=== PATIENT | female | born 1940 | race Caucasian/White ===

== ENCOUNTER 2018-07-15 09:01 | Inpatient (IN) | payer BC ==
[~2018-07-15] VITALS: Ht 157.5 cm; Wt 97.0 kg
[2018-07-15 09:35] LABS: BASOPHILS % (AUTO) 0.7 % (0-1); EOSINOPHILS # (AUTO) 0.1 X10'3 (0-0.9); EOSINOPHILS % (AUTO) 1.4 % (0-6); HEMATOCRIT 43.5 % (35.0-45.0); HEMOGLOBIN 14.1 g/dl (12.0-16.0); LYMPHOCYTES # (AUTO) 1.4 X10'3 (1.1-4.8); LYMPHOCYTES % (AUTO) 23.4 % (21-51); MEAN CORPUSCULAR HEMOGLOBIN 27.5 PG (27.0-31.0); MEAN CORPUSCULAR HGB CONC 32.6 g/dL (33.0-36.5); MEAN CORPUSCULAR VOLUME 84.5 FL (78-98); MEAN PLATELET VOLUME 8.4 FL (7.4-10.4); MONOCYTES # (AUTO) 0.5 X10'3 (0-0.9); MONOCYTES % (AUTO) 7.9 % (2-12); NEUTROPHILS # (AUTO) 4.1 X10'3 (1.8-7.7); NEUTROPHILS % (AUTO) 66.6 % (42-75); PLATELET COUNT 231 X10'3 (140-440); RED BLOOD COUNT 5.15 X10'6 (4.20-5.60); RED CELL DISTRIBUTION WIDTH 16.7 % (11.5-14.5); WHITE BLOOD COUNT 6.1 X10'3 (4.5-11.0)
[2018-07-15 09:51] LABS: ALANINE AMINOTRANSFERASE 75 U/L (12-78); ALBUMIN 3.4 G/DL (3.4-5.0); ALKALINE PHOSPHATASE 58 IU/L (46-116); ANION GAP 10 (8-16); ASPARTATE AMINO TRANSFERASE 57 U/L (10-37); BILIRUBIN,TOTAL 0.9 MG/DL (0.1-1.0); BLOOD UREA NITROGEN 25 MG/DL (7-18); BUN/CREATININE RATIO 21.7 (6.6-38.0); CALCIUM 9.8 MG/DL (8.5-10.1); CHLORIDE 108 MMOL/L (99-107); CREATININE 1.15 MG/DL (0.40-0.90); GLUCOSE 103 MG/DL (70-104); POTASSIUM 3.9 MMOL/L (3.5-5.1); SODIUM 141 MMOL/L (135-145); TOTAL CARBON DIOXIDE 23.4 MMOL/L (24-32); TOTAL PROTEIN 6.8 G/DL (6.4-8.2); eGFR 45 ML/MIN
[2018-07-15 09:53] LABS: PARTIAL THROMBOPLASTIN TIME 36 SECONDS (22-32)
[2018-07-15] MEDS ORDERED: normal saline 1000ML IV soln IVB ONE (09:55)
[2018-07-15] MEDS ORDERED: mag hydrox/Alum hydrox/simeth 30ml oral suspension PO PRN (11:15)
[2018-07-15] MEDS ORDERED: magnesium hydroxide 30ml (MOM) UD suspension PO PRN (11:15)
[2018-07-15] MEDS ORDERED: ondansetron/PF 4mg/2ml inj IV PRN (11:15)
[2018-07-15] MEDS ORDERED: acetaminophen 325mg tablet PO PRN (11:15)
[2018-07-15] MEDS ORDERED: morphine 2 MG/ML inj. syringe IV PRN ×2 (11:15)
[2018-07-15] MEDS ORDERED: METO50TA7 PO (11:24)
[2018-07-15] MEDS ORDERED: WARF-55 PO (11:24)
[2018-07-15] MEDS ORDERED: FURO-150 PO (11:24)
[2018-07-15] MEDS ORDERED: GLUC100017 PO (11:24)
[2018-07-15] MEDS ORDERED: COU5T PO (11:24)
[2018-07-15] MEDS ORDERED: CYAN250014 PO (11:24)
[2018-07-15] MEDS ORDERED: BENA20TA82 PO (11:24)
[2018-07-15] MEDS ORDERED: CALC500T63 PO (11:24)
[2018-07-15] MEDS: furosemide 40mg/4ml inj IV SCH ×2 (11:30→21:45)
--- NOTE | 2018-07-15 14:50 | NUR ---
Patient in room PCU 3026. I have received report from Abbe ROBERSON and had the opportunity to ask questions and assume patient care. Tele monitor is on patient, vital signs obtained, pt is on room air and denies SOB and chest pain. Family is at bedside. Fresh water and call light given to pt, will continue to monitor.
[2018-07-15 15:00] VITALS: BP 123/82
--- NOTE | 2018-07-15 16:14 | NUR ---
PAGER ID: [phone] MESSAGE: [phone] Zenaida Lin Pt's heart rate trending in 115 to 120. Blood pressure 123/82. Thank you, Heike # [phone]
[2018-07-15 18:00] VITALS: BP 103/79
--- NOTE | 2018-07-15 18:50 | NUR ---
Problems reprioritized. Patient report given, questions answered & plan of care reviewed with Taniya ROBERSON.
--- NOTE | 2018-07-15 18:56 | NUR ---
Patient in room PCU 3026. I have received report from Heike ROBERSON and had the opportunity to ask questions and assume patient care.
[2018-07-15] MEDS: metoprolol succinate 25mg (24-HOUR) SR. Tablet PO SCH (19:00)
[2018-07-15] MEDS: lisinopril 20mg tablet PO SCH (19:02)
[2018-07-15] MEDS ORDERED: warfarin 10mg tablet PO ONE (21:00)
[2018-07-15 22:00] VITALS: BP 94/65
[2018-07-16 02:00] VITALS: BP 106/76
[2018-07-16 06:02] LABS: BASOPHILS % (AUTO) 0.6 % (0-1); EOSINOPHILS # (AUTO) 0.1 X10'3 (0-0.9); HEMATOCRIT 43.5 % (35.0-45.0); HEMOGLOBIN 14.4 g/dl (12.0-16.0); LYMPHOCYTES # (AUTO) 1.5 X10'3 (1.1-4.8); LYMPHOCYTES % (AUTO) 25.8 % (21-51); MEAN CORPUSCULAR HEMOGLOBIN 27.8 PG (27.0-31.0); MEAN CORPUSCULAR HGB CONC 33.1 g/dL (33.0-36.5); MEAN PLATELET VOLUME 8.4 FL (7.4-10.4); MONOCYTES # (AUTO) 0.6 X10'3 (0-0.9); NEUTROPHILS # (AUTO) 3.6 X10'3 (1.8-7.7); NEUTROPHILS % (AUTO) 61.6 % (42-75); PLATELET COUNT 229 X10'3 (140-440); RED BLOOD COUNT 5.17 X10'6 (4.20-5.60); RED CELL DISTRIBUTION WIDTH 16.4 % (11.5-14.5); WHITE BLOOD COUNT 5.8 X10'3 (4.5-11.0)
[2018-07-16 06:23] LABS: ALBUMIN 3.4 G/DL (3.4-5.0); ANION GAP 9 (8-16); BLOOD UREA NITROGEN 25 MG/DL (7-18); BUN/CREATININE RATIO 22.7 (6.6-38.0); CALCIUM 9.7 MG/DL (8.5-10.1); CHLORIDE 107 MMOL/L (99-107); GLUCOSE 92 MG/DL (70-104); POTASSIUM 3.2 MMOL/L (3.5-5.1); SODIUM 143 MMOL/L (135-145); TOTAL CARBON DIOXIDE 26.9 MMOL/L (24-32); eGFR 48 ML/MIN
--- NOTE | 2018-07-16 06:33 | NUR ---
Patient in room PCU 3026. I have received report from Taniya ROBERSON and had the opportunity to ask questions and assume patient care.
--- NOTE | 2018-07-16 06:37 | NUR ---
Problems reprioritized. Patient report given, questions answered & plan of care reviewed with Heike ROBERSON.
[2018-07-16 07:00] VITALS: BP 104/83
[2018-07-16] MEDS ORDERED: enoxaparin 40mg/0.4ml syringe SUBCUT SCH (08:00)
[2018-07-16] MEDS ORDERED: non-formulary drug (Glucosamine Sulfate 2Kcl (Glucosamine) 1 TAB) PO SCH (08:00)
--- NOTE | 2018-07-16 08:27 | NUR ---
PAGER ID: [phone] MESSAGE: [phone] Zenaida Lin I order electrolyte replacement protocol, pt potassium is 3.2. Thank you, Heike #[phone]
[2018-07-16] MEDS: cyanocobalamin 500mcg tablet PO SCH (08:29)
[2018-07-16] MEDS: metoprolol succinate 25mg (24-HOUR) SR. Tablet PO SCH (08:31)
[2018-07-16] MEDS: lisinopril 20mg tablet PO SCH (08:31)
[2018-07-16] MEDS: furosemide 40mg/4ml inj IV SCH ×2 (10:15→20:35)
[2018-07-16] MEDS: potassium Cl 20 mEq SR tablet PO SCH ×2 (10:16→17:42)
[2018-07-16 11:00] VITALS: BP 111/79
[2018-07-16 15:00] VITALS: BP 102/71
[2018-07-16] MEDS ORDERED: potassium Cl 20 mEq SR tablet PO SCH (17:30)
[2018-07-16 18:00] VITALS: BP 107/66
--- NOTE | 2018-07-16 18:25 | NUR ---
Problems reprioritized. Patient report given, questions answered & plan of care reviewed with Taniya ROBERSON.
--- NOTE | 2018-07-16 18:27 | NUR ---
Patient in room PCU 3026. I have received report from Heike ROBERSON and had the opportunity to ask questions and assume patient care.
[2018-07-16] MEDS ORDERED: warfarin 10mg tablet PO ONE (21:00)
[2018-07-16 22:00] VITALS: BP 100/79
[2018-07-17 02:00] VITALS: BP 105/79
[2018-07-17 05:46] LABS: BASOPHILS % (AUTO) 0.6 % (0-1); EOSINOPHILS # (AUTO) 0.1 X10'3 (0-0.9); EOSINOPHILS % (AUTO) 2.3 % (0-6); HEMATOCRIT 44.3 % (35.0-45.0); HEMOGLOBIN 14.8 g/dl (12.0-16.0); LYMPHOCYTES # (AUTO) 1.4 X10'3 (1.1-4.8); MEAN CORPUSCULAR HEMOGLOBIN 27.8 PG (27.0-31.0); MEAN CORPUSCULAR HGB CONC 33.3 g/dL (33.0-36.5); MEAN CORPUSCULAR VOLUME 83.3 FL (78-98); MEAN PLATELET VOLUME 8.6 FL (7.4-10.4); MONOCYTES # (AUTO) 0.6 X10'3 (0-0.9); MONOCYTES % (AUTO) 10.8 % (2-12); NEUTROPHILS # (AUTO) 3.1 X10'3 (1.8-7.7); NEUTROPHILS % (AUTO) 59.3 % (42-75); PLATELET COUNT 204 X10'3 (140-440); RED BLOOD COUNT 5.32 X10'6 (4.20-5.60); RED CELL DISTRIBUTION WIDTH 16.8 % (11.5-14.5); WHITE BLOOD COUNT 5.2 X10'3 (4.5-11.0)
[2018-07-17 06:30] VITALS: BP 109/90
[2018-07-17 06:37] LABS: ALBUMIN 3.2 G/DL (3.4-5.0); ANION GAP 9 (8-16); BLOOD UREA NITROGEN 30 MG/DL (7-18); BUN/CREATININE RATIO 26.3 (6.6-38.0); CALCIUM 9.1 MG/DL (8.5-10.1); CHLORIDE 106 MMOL/L (99-107); CREATININE 1.14 MG/DL (0.40-0.90); GLUCOSE 94 MG/DL (70-104); POTASSIUM 3.5 MMOL/L (3.5-5.1); SODIUM 141 MMOL/L (135-145); TOTAL CARBON DIOXIDE 25.6 MMOL/L (24-32); eGFR 46 ML/MIN
--- NOTE | 2018-07-17 07:00 | NUR ---
Patient in room PCU 3026. I have received report from DA Monahan and had the opportunity to ask questions and assume patient care.
--- NOTE | 2018-07-17 07:20 | NUR ---
Problems reprioritized. Patient report given, questions answered & plan of care reviewed with Akosua RN.
[2018-07-17 11:00] VITALS: BP 116/66
[2018-07-17] MEDS: metoprolol succinate 25mg (24-HOUR) SR. Tablet PO SCH (11:15)
[2018-07-17] MEDS: potassium Cl 20 mEq SR tablet PO SCH (11:15)
[2018-07-17] MEDS: cyanocobalamin 500mcg tablet PO SCH (11:16)
[2018-07-17 11:17] VITALS: BP_SYST 109
[2018-07-17] MEDS: lisinopril 20mg tablet PO SCH (11:17)
[2018-07-17] MEDS: furosemide 40mg/4ml inj IV SCH (11:17)
[2018-07-17] MEDS ORDERED: FURO-149 PO (13:05)
[2018-07-17] MEDS ORDERED: POTA20TA19 PO (13:05)
--- NOTE | 2018-07-17 14:50 | NUR ---
DC inst provided to pt. IV DC'd, tip intact. All belongings sent w/pt. WC to front lobby. DC delayed 2/2 workload.
== END 2018-07-17 14:52 | disposition home or self-care (01) | DRG 291 ==
LOC: ER 09:02 → PCU 3S 13:58
PROVIDERS: ADMIT Internal Medicine; ATTEND Family Medicine
DX: I11.0 Hypertensive heart disease with heart failure (principal); J96.00 Acute respiratory failure, unspecified whether with hypoxia or hypercapnia; E78.00 Pure hypercholesterolemia, unspecified; I50.23 Acute on chronic systolic (congestive) heart failure; Z96.653 Presence of artificial knee joint, bilateral; I49.5 Sick sinus syndrome; Z79.01 Long term (current) use of anticoagulants; Z86.718 Personal history of other venous thrombosis and embolism; Z90.710 Acquired absence of both cervix and uterus; Z95.0 Presence of cardiac pacemaker; Z88.5 Allergy status to narcotic agent; Z79.899 Other long term (current) drug therapy; E87.6 Hypokalemia
CPT/HCPCS: 36415; 71045; 80048; 80053; 83880; 84484; 85025; 85610; 85730; 87070; 93005; 93306; 96360; 99285; G0378; J1650; J1940; J2270

== ENCOUNTER 2022-12-18 13:47 | Emergency (ER) | payer BC ==
[~2022-12-18] VITALS: Ht 152.4 cm; Wt 100.0 kg
[~2022-12-18 13:47] MED LIST: BENA20TA82 PO; CALC500T63 PO; CYAN250014 PO; FURO-149 PO; GLUC100017 PO; METO50TA7 PO; WARF-113 PO; WARF-55 PO
[2022-12-18 14:05] VITALS: RESP 16; TEMP 97.2
[2022-12-18] MEDS ORDERED: cloNIDine 0.1 mg tablet PO ONE (16:30)
[2022-12-18] MEDS ORDERED: LIDOcaine 1% 30ml preserv. free vial SQ STA (17:13)
--- NOTE | 2022-12-18 17:49 | NUR ---
I REVIEWED AND AGREE WITH ASSESSMENT
[2022-12-18 21:00] LABS: BASOPHILS % (AUTO) 0.4 % (0-1); EOSINOPHILS # (AUTO) 0.1 X10'3 (0-0.9); EOSINOPHILS % (AUTO) 0.8 % (0-6); HEMATOCRIT 40.4 % (35.0-45.0); HEMOGLOBIN 13.3 g/dl (12.0-16.0); LYMPHOCYTES # (AUTO) 1.3 X10'3 (1.1-4.8); LYMPHOCYTES % (AUTO) 18.9 % (21-51); MEAN CORPUSCULAR HEMOGLOBIN 28.8 PG (27.0-31.0); MEAN CORPUSCULAR HGB CONC 32.8 g/dL (33.0-36.5); MEAN CORPUSCULAR VOLUME 87.7 FL (78-98); MEAN PLATELET VOLUME 7.7 FL (7.4-10.4); MONOCYTES # (AUTO) 0.7 X10'3 (0-0.9); MONOCYTES % (AUTO) 10.9 % (2-12); NEUTROPHILS # (AUTO) 4.6 X10'3 (1.8-7.7); PLATELET COUNT 281 X10'3 (140-440); RED BLOOD COUNT 4.61 X10'6 (4.20-5.60); RED CELL DISTRIBUTION WIDTH 15.8 % (11.5-14.5); WHITE BLOOD COUNT 6.6 X10'3 (4.5-11.0)
[2022-12-18 21:11] LABS: ALANINE AMINOTRANSFERASE 13 U/L (12-78); ALBUMIN/GLOBULIN RATIO 0.9 (1.1-1.5); ALKALINE PHOSPHATASE 60 IU/L (46-116); ANION GAP 4 (8-16); ASPARTATE AMINO TRANSFERASE 18 U/L (10-37); BILIRUBIN,TOTAL 0.7 MG/DL (0.1-1.0); BLOOD UREA NITROGEN 12 MG/DL (7-18); CALCIUM 9.1 MG/DL (8.5-10.1); CHLORIDE 106 MMOL/L (99-107); GLUCOSE 132 MG/DL (70-104); POTASSIUM 3.9 MMOL/L (3.5-5.1); SODIUM 138 MMOL/L (135-145); TOTAL PROTEIN 6.2 G/DL (6.4-8.2); eCRCL 30 ML/MIN; eGFR 53 ML/MIN
[2022-12-18] MEDS ORDERED: OXYC-658 PO (22:27)
[2022-12-18] MEDS ORDERED: HYDROcodone/acetaminophen 10/325mg tab PO STA (22:47)
[2022-12-18 23:01] VITALS: BP 136/81; PULSE 81; O2SAT 95
[2022-12-19 01:36] LABS: GLUCOSE,SYNOVIAL FLUID 18 MG/DL
[2022-12-19 01:37] LABS: SYNOVIAL FLUID CRYSTALS QT NO CRYSTALS SEEN
[2022-12-19 02:59] LABS: APPEARANCE,SYNOVIAL FLUID BLOODY; COLOR,SYNOVIAL FLUID RED
[2022-12-19 03:00] LABS: LYMPHOCYTES,SYNOVIAL FLUID 8 % (0-75); MONOCYTES,SYNOVIAL FLUID 2 % (0-0); NEUTROPHILS,SYNOVIAL FLUID 86 % (0-25); SYN WBC 399.99 /CU MM (0-200)
== END 2022-12-18 23:03 | disposition home or self-care (01) ==
LOC: ER 13:48
DX: M25.062 Hemarthrosis, left knee (principal)
CPT/HCPCS: 10160; 36415; 73560; 80053; 82945; 84157; 85025; 89051; 89060; 93971; 99285; A6266; A6449

== ENCOUNTER 2024-01-07 08:13 | Inpatient (IN) | payer BC ==
[~2024-01-07] VITALS: Ht 157.5 cm; Wt 111.5 kg
[2024-01-07] VITALS (11 sets, daily range): BP systolic 76–153; BP diastolic 51–108; PULSE 64–83; RESP 15–25; TEMP 97.7–98; O2SAT 95
[2024-01-07 09:09] LABS: BASOPHILS % (AUTO) 0.4 % (0-1); EOSINOPHILS % (AUTO) 0.2 % (0-6); HEMATOCRIT 39.2 % (35.0-45.0); HEMOGLOBIN 12.6 g/dl (12.0-16.0); LYMPHOCYTES # (AUTO) 1.5 X10'3 (1.1-4.8); LYMPHOCYTES % (AUTO) 15.1 % (21-51); MEAN CORPUSCULAR HEMOGLOBIN 27.7 PG (27.0-31.0); MEAN CORPUSCULAR HGB CONC 32.1 g/dL (33.0-36.5); MEAN CORPUSCULAR VOLUME 86.2 FL (78-98); MONOCYTES # (AUTO) 0.9 X10'3 (0-0.9); NEUTROPHILS # (AUTO) 7.4 X10'3 (1.8-7.7); NEUTROPHILS % (AUTO) 75.3 % (42-75); PLATELET COUNT 315 X10'3 (140-440); RED BLOOD COUNT 4.55 X10'6 (4.20-5.60); RED CELL DISTRIBUTION WIDTH 15.8 % (11.5-14.5); WHITE BLOOD COUNT 9.8 X10'3 (4.5-11.0)
[2024-01-07] MEDS: normal saline 500ml IV soln 500 ML IV SCH (09:18)
[2024-01-07 09:24] LABS: ALANINE AMINOTRANSFERASE 30 U/L (12-78); ALBUMIN 3.4 G/DL (3.4-5.0); ALKALINE PHOSPHATASE 58 IU/L (46-116); ANION GAP 11 (8-16); ASPARTATE AMINO TRANSFERASE 35 U/L (10-37); BILIRUBIN,TOTAL 1.1 MG/DL (0.1-1.0); BLOOD UREA NITROGEN 21 MG/DL (7-18); BUN/CREATININE RATIO 12.1 (10.0-20.0); CHLORIDE 105 MMOL/L (99-107); CREATININE 1.74 MG/DL (0.40-0.90); GLUCOSE 157 MG/DL (70-104); POTASSIUM 3.7 MMOL/L (3.5-5.1); SODIUM 144 MMOL/L (135-145); TOTAL CARBON DIOXIDE 27.6 MMOL/L (24-32); TOTAL PROTEIN 6.9 G/DL (6.4-8.2); eGFR 28 ML/MIN
[2024-01-07 09:32] LABS: PRO BRAIN NATRIURETIC PEPTIDE 574 PG/ML (0-450)
[2024-01-07 09:49] LABS: INR 2.4 INR
[2024-01-07] MEDS ORDERED: magnesium sulf-water 4G/100mL 100 ML IV PRN (10:10)
[2024-01-07] MEDS ORDERED: acetaminophen 325mg tablet PO PRN (10:10)
[2024-01-07] MEDS ORDERED: HYDROcodone/acetaminophen 5mg/325mg tablet PO PRN (10:10)
[2024-01-07] MEDS ORDERED: potassium Cl 40MEQ/1/2NS 520ml 520 ML IV PRN (10:10)
[2024-01-07] MEDS ORDERED: HYDROcodone/acetaminophen 10/325mg tab PO PRN (10:10)
[2024-01-07] MEDS ORDERED: potassium Cl 20 mEq SR tablet PO PRN (10:10)
[2024-01-07] MEDS ORDERED: ondansetron/PF 4mg/2ml inj IV PRN (10:10)
[2024-01-07] MEDS ORDERED: magnesium Cl slow-release 64mg tablet PO PRN (10:10)
[2024-01-07] MEDS ORDERED: magnesium sulf-water 2g/50mL 50 ML IV PRN (10:10)
[2024-01-07] MEDS ORDERED: morphine 2 MG/ML inj. syringe IV PRN (10:10)
[2024-01-07] MEDS ORDERED: mag hydrox/Alum hydrox/simeth 30ml oral suspension PO PRN (10:10)
[2024-01-07 10:44] LABS: MAGNESIUM 2.2 MG/DL (1.5-2.4)
[2024-01-07 10:54] LABS: HEMOGLOBIN A1C 5.6 % (4.5-6.2)
[2024-01-07 13:27] LABS: C-REACTIVE PROTEIN 1.42 MG/DL (0.0-0.5)
[2024-01-07] MEDS: phytonadione inj. 5 MG in normal saline 100ml IV soln 100 ML IV STA (14:47)
[2024-01-07] MEDS ORDERED: fentaNYL/PF 50MCG/1 ML 2ML syringe ONE (15:01)
[2024-01-07] MEDS ORDERED: LIDOcaine 1% 30ml preserv. free vial ONE (15:01)
[2024-01-07] MEDS ORDERED: midazolam 1 mg/ML 2ml injection ONE (15:01)
[2024-01-07 16:20] LABS: FREE T4 (FREE THYROXINE) 1.12 NG/DL (0.73-1.40); THYROID STIMULATING HORMONE 5.32 ulU/ml (0.34-4.50)
[2024-01-07] MEDS: normal saline 1000ml 1,000 ML IV SCH (17:32)
[2024-01-07] MEDS: K and/or MAG REPLACEMENT MC SCH (19:08)
[2024-01-07] MEDS ORDERED: warfarin 5mg tablet PO ONE (21:00)
[2024-01-08] VITALS (7 sets, daily range): BP systolic 125–146; BP diastolic 54–85; PULSE 72–92; RESP 20–26; TEMP 97–98.9; O2SAT 93–96
[2024-01-08 06:47] LABS: INR 1.4 INR; PROTHROMBIN TIME 14.5 SECONDS (9.0-12.0)
[2024-01-08 06:53] LABS: ALANINE AMINOTRANSFERASE 76 U/L (12-78); ALBUMIN 2.7 G/DL (3.4-5.0); ALBUMIN/GLOBULIN RATIO 0.9 (1.1-1.5); ALKALINE PHOSPHATASE 43 IU/L (46-116); ANION GAP 3 (8-16); ASPARTATE AMINO TRANSFERASE 76 U/L (10-37); BILIRUBIN,TOTAL 1.4 MG/DL (0.1-1.0); BLOOD UREA NITROGEN 20 MG/DL (7-18); CALCIUM 8.2 MG/DL (8.5-10.1); CHLORIDE 108 MMOL/L (99-107); CHOL/HDL RATIO 2.3 (0.00-4.99); CHOLESTEROL 105 MG/DL (0-200); CREATININE 1.25 MG/DL (0.40-0.90); GLUCOSE 122 MG/DL (70-104); HDL CHOLESTEROL 46 MG/DL (35-60); LDL CHOLESTEROL 58 MG/DL (50-100); PHOSPHORUS 2.9 MG/DL (2.3-4.5); POTASSIUM 3.4 MMOL/L (3.5-5.1); SODIUM 142 MMOL/L (135-145); TOTAL CARBON DIOXIDE 30.6 MMOL/L (24-32); TOTAL PROTEIN 5.7 G/DL (6.4-8.2); TRIGLYCERIDES 39 MG/DL (20-135); eGFR 41 ML/MIN
[2024-01-08 06:55] LABS: BASOPHILS % (AUTO) 0.3 % (0-1); EOSINOPHILS % (AUTO) 0.1 % (0-6); HEMATOCRIT 32.5 % (35.0-45.0); HEMOGLOBIN 10.8 g/dl (12.0-16.0); LYMPHOCYTES % (AUTO) 11.3 % (21-51); MEAN CORPUSCULAR HEMOGLOBIN 28.4 PG (27.0-31.0); MEAN CORPUSCULAR HGB CONC 33.3 g/dL (33.0-36.5); MEAN CORPUSCULAR VOLUME 85.3 FL (78-98); MEAN PLATELET VOLUME 7.9 FL (7.4-10.4); MONOCYTES % (AUTO) 11.2 % (2-12); NEUTROPHILS # (AUTO) 6.9 X10'3 (1.8-7.7); NEUTROPHILS % (AUTO) 77.1 % (42-75); PLATELET COUNT 235 X10'3 (140-440); RED BLOOD COUNT 3.81 X10'6 (4.20-5.60); RED CELL DISTRIBUTION WIDTH 15.7 % (11.5-14.5); WHITE BLOOD COUNT 8.9 X10'3 (4.5-11.0)
[2024-01-08] MEDS: metoprolol succinate 25mg (24-HOUR) SR. Tablet PO SCH (07:31)
[2024-01-08] MEDS: cyanocobalamin 500mcg tablet PO SCH (07:32)
[2024-01-08] MEDS: lisinopril 20mg tablet PO SCH (07:33)
[2024-01-08] MEDS ORDERED: furosemide 40mg tablet PO SCH (08:00)
[2024-01-08] MEDS ORDERED: non-formulary drug (Glucosamine Sulfate 2Kcl (Glucosamine) 1 TAB) PO SCH (08:00)
[2024-01-08] MEDS: potassium Cl 20 mEq SR tablet PO PRN (08:13)
[2024-01-08 10:05] LABS: D-DIMER 1.67 MG/L FEU (0-0.50)
[2024-01-08] MEDS: lactose-reduced food (Ensure Enlive) - 237ml bottle PO SCH (13:00)
[2024-01-08] MEDS: furosemide 20 MG/2 ML vial IV ONE ×2 (15:03→17:45)
[2024-01-08] MEDS: warfarin 10mg tablet PO ONE (22:25)
[2024-01-09 02:20] VITALS: BP 132/66; PULSE 76; RESP 28; TEMP 97.6; O2SAT 95
[2024-01-09 06:00] VITALS: BP 131/66; PULSE 68; RESP 15; TEMP 98.2; O2SAT 98
[2024-01-09 06:34] LABS: BASOPHILS % (AUTO) 0.4 % (0-1); EOSINOPHILS # (AUTO) 0.1 X10'3 (0-0.9); HEMATOCRIT 35.1 % (35.0-45.0); HEMOGLOBIN 11.6 g/dl (12.0-16.0); LYMPHOCYTES # (AUTO) 1.3 X10'3 (1.1-4.8); LYMPHOCYTES % (AUTO) 14.5 % (21-51); MEAN CORPUSCULAR HEMOGLOBIN 28.4 PG (27.0-31.0); MEAN CORPUSCULAR HGB CONC 33.1 g/dL (33.0-36.5); MEAN PLATELET VOLUME 8.2 FL (7.4-10.4); MONOCYTES # (AUTO) 1.2 X10'3 (0-0.9); NEUTROPHILS # (AUTO) 6.4 X10'3 (1.8-7.7); NEUTROPHILS % (AUTO) 71.1 % (42-75); PLATELET COUNT 274 X10'3 (140-440); RED BLOOD COUNT 4.08 X10'6 (4.20-5.60); RED CELL DISTRIBUTION WIDTH 15.9 % (11.5-14.5)
[2024-01-09 06:43] LABS: INR 1.2 INR; PROTHROMBIN TIME 12.6 SECONDS (9.0-12.0)
[2024-01-09 06:54] LABS: ALANINE AMINOTRANSFERASE 95 U/L (12-78); ALBUMIN 2.8 G/DL (3.4-5.0); ALBUMIN/GLOBULIN RATIO 0.8 (1.1-1.5); ALKALINE PHOSPHATASE 45 IU/L (46-116); ANION GAP 7 (8-16); ASPARTATE AMINO TRANSFERASE 69 U/L (10-37); BILIRUBIN,TOTAL 1.1 MG/DL (0.1-1.0); BLOOD UREA NITROGEN 17 MG/DL (7-18); BUN/CREATININE RATIO 16.2 (10.0-20.0); CALCIUM 8.5 MG/DL (8.5-10.1); CHLORIDE 106 MMOL/L (99-107); CREATININE 1.05 MG/DL (0.40-0.90); GLUCOSE 106 MG/DL (70-104); MAGNESIUM 2.2 MG/DL (1.5-2.4); PHOSPHORUS 2.4 MG/DL (2.3-4.5); POTASSIUM 4.1 MMOL/L (3.5-5.1); SODIUM 141 MMOL/L (135-145); TOTAL CARBON DIOXIDE 28.4 MMOL/L (24-32); TOTAL PROTEIN 6.4 G/DL (6.4-8.2); eCRCL 31 ML/MIN; eGFR 50 ML/MIN
[2024-01-09 08:00] VITALS: RESP 15; O2SAT 98
[2024-01-09] MEDS: furosemide 20 MG/2 ML vial IV SCH (09:06)
[2024-01-09] MEDS: acetaminophen 325mg tablet PO PRN (11:53)
[2024-01-09 12:00] VITALS: BP 149/62; PULSE 87; RESP 22; TEMP 99.5; O2SAT 95
[2024-01-09 18:00] VITALS: BP 112/60; PULSE 76; RESP 16; TEMP 99.7; O2SAT 95
[2024-01-09] MEDS: warfarin 10mg tablet PO ONE (19:34)
[2024-01-09 20:00] VITALS: RESP 16; O2SAT 95
[2024-01-10] VITALS: BP 137/83; PULSE 79; RESP 16; TEMP 98.7; O2SAT 96
[2024-01-10 03:45] VITALS: TEMP 99.4
[2024-01-10 06:00] VITALS: BP 134/64; PULSE 68; RESP 15; TEMP 97.1; O2SAT 95
[2024-01-10 07:30] LABS: BASOPHILS % (AUTO) 0.4 % (0-1); EOSINOPHILS # (AUTO) 0.1 X10'3 (0-0.9); EOSINOPHILS % (AUTO) 1.7 % (0-6); HEMATOCRIT 35.6 % (35.0-45.0); HEMOGLOBIN 11.8 g/dl (12.0-16.0); LYMPHOCYTES # (AUTO) 1.3 X10'3 (1.1-4.8); LYMPHOCYTES % (AUTO) 15.5 % (21-51); MEAN CORPUSCULAR HEMOGLOBIN 28.2 PG (27.0-31.0); MEAN CORPUSCULAR HGB CONC 33.2 g/dL (33.0-36.5); MEAN CORPUSCULAR VOLUME 84.9 FL (78-98); MEAN PLATELET VOLUME 8.1 FL (7.4-10.4); MONOCYTES # (AUTO) 0.9 X10'3 (0-0.9); MONOCYTES % (AUTO) 10.4 % (2-12); NEUTROPHILS # (AUTO) 6.2 X10'3 (1.8-7.7); PLATELET COUNT 290 X10'3 (140-440); RED CELL DISTRIBUTION WIDTH 15.5 % (11.5-14.5); WHITE BLOOD COUNT 8.6 X10'3 (4.5-11.0)
[2024-01-10 07:36] LABS: INR 1.4 INR
[2024-01-10 07:47] LABS: ALANINE AMINOTRANSFERASE 100 U/L (12-78); ALBUMIN 2.9 G/DL (3.4-5.0); ALBUMIN/GLOBULIN RATIO 0.8 (1.1-1.5); ALKALINE PHOSPHATASE 46 IU/L (46-116); ANION GAP 8 (8-16); ASPARTATE AMINO TRANSFERASE 54 U/L (10-37); BILIRUBIN,TOTAL 0.9 MG/DL (0.1-1.0); BLOOD UREA NITROGEN 25 MG/DL (7-18); BUN/CREATININE RATIO 25.3 (10.0-20.0); CALCIUM 8.5 MG/DL (8.5-10.1); CHLORIDE 105 MMOL/L (99-107); CREATININE 0.99 MG/DL (0.40-0.90); GLUCOSE 103 MG/DL (70-104); MAGNESIUM 2.2 MG/DL (1.5-2.4); SODIUM 141 MMOL/L (135-145); TOTAL CARBON DIOXIDE 28.2 MMOL/L (24-32); TOTAL PROTEIN 6.7 G/DL (6.4-8.2); eCRCL 33 ML/MIN; eGFR 53 ML/MIN
[2024-01-10 08:00] VITALS: RESP 15; O2SAT 96
[2024-01-10] MEDS: furosemide 20 MG/2 ML vial IV SCH (10:19)
[2024-01-10 11:00] VITALS: BP 112/47; PULSE 82; RESP 30; TEMP 98.2; O2SAT 95
[2024-01-10] MEDS ORDERED: FURO-149 PO (11:15)
[2024-01-10 15:00] VITALS: BP 128/60; PULSE 72; RESP 17; TEMP 97.9; O2SAT 97
[2024-01-10] MEDS ORDERED: warfarin 3mg tablet PO ONE (21:00)
== END 2024-01-10 17:20 | disposition home health service (06) | DRG 314 ==
LOC: ER 08:14 → ED HOLD 10:13 → PCU 3S 15:59
PROVIDERS: ADMIT Internal Medicine; ATTEND Internal Medicine
PROC: 0W9D3ZZ Drainage of Pericardial Cavity, Percutaneous Approach (ICD-10-PCS; principal; 2024-01-07)
DX: I31.39 Other pericardial effusion (noninflammatory) (principal); I50.23 Acute on chronic systolic (congestive) heart failure; N17.0 Acute kidney failure with tubular necrosis; I31.4 Cardiac tamponade; R07.81 Pleurodynia; I11.0 Hypertensive heart disease with heart failure; I20.89 Other forms of angina pectoris; Z96.653 Presence of artificial knee joint, bilateral; E78.00 Pure hypercholesterolemia, unspecified; I48.0 Paroxysmal atrial fibrillation; I95.9 Hypotension, unspecified; I35.0 Nonrheumatic aortic (valve) stenosis; R19.7 Diarrhea, unspecified; E07.81 Sick-euthyroid syndrome; Z79.01 Long term (current) use of anticoagulants; Z86.711 Personal history of pulmonary embolism; Z95.0 Presence of cardiac pacemaker; Z88.5 Allergy status to narcotic agent; Z88.8 Allergy status to other drugs, medicaments and biological substances; Z91.013 Allergy to seafood; Z86.718 Personal history of other venous thrombosis and embolism
CPT/HCPCS: 33016; 36415; 71045; 80053; 80061; 83036; 83605; 83735; 83880; 84100; 84145; 84439; 84443; 84484; 85025; 85379; 85610; 85651; 86140; 87081; 88108; 88305; 93005; 93306; 93308; 97116; 97161; 97530; 99285; A4615; G0378; J1940; J2003; J2250; J3010; J3430; J7030; J7040

== ENCOUNTER 2024-07-21 15:46 | Emergency (ER) | payer BC ==
[~2024-07-21] VITALS: Ht 154.9 cm; Wt 95.8 kg
[2024-07-21 15:48] VITALS: BP 172/83; PULSE 60; RESP 16; O2SAT 96
--- NOTE | 2024-07-21 16:56 | Physician Documentation ---
History of Present Illness ~ Chief Complaint: Hypertension Stated Complaint: POSS POST OP COMPLICATIONS Time Seen by MD: 16:25 OK to notify your PCP?: Yes Primary Medical Doctor: Residency Service Source: patient Mode of Arrival: POV Exam Limitations: no limitations HPI 84 y/o female with concern about her blood pressure which was 220/130 at home. She states "I just felt tired all day" but she admits she did not sleep very well last night so that could be a contributing factor. She called her leasing coordinator who recommended she come to ER for evaluation. She denies vision changes, headache, chest pain, SOB, edema. Medication Reconciliation Allergies: Coded Allergies: shellfish derived (Verified Allergy, Unknown, 01/07/24) acetaminophen (Unverified Adverse Reaction, Intermediate, Nausea/vomiting, 01/07/24) hydrocodone (Unverified Adverse Reaction, Intermediate, Nausea/vomiting, 01/07/24) diazepam (Verified Adverse Reaction, Unknown, 01/07/24) vomiting , scares her, "feels like dying" Scheduled Benazepril Hcl* (Lotensin*), 1 TAB PO DAILY, (Reported) Cyanocobalamin (Vitamin B-12) (Vitamin B12), 1,000 MCG PO DAILY, (Reported) Furosemide (Lasix), 40 MG PO BID Glucosamine Sulfate 2Kcl (Glucosamine), 1 TAB PO DAILY, (Reported) Metoprolol Succinate* (Toprol Xl*), 1 TAB PO DAILY, (Reported) Warfarin Sodium (Warfarin Sodium), 1 TAB PO M, Th, (Reported) Warfarin Sodium* (Coumadin*), 10 MG PO , , , Sat, Wed, (Reported) Miscellaneous Medications Calcium Carbonate (Calcium), 1,000 MG PO, (Reported) Past Medical History Past Medical History: *CARDIOVASCULAR*, High Cholesterol, Hypertension, Deep Vein Thrombosis Past Surgical History: pacemaker Other Past Surgical History: Bilateral knee replacement Drug Use: none Lives In: Home Occupation: retired Review of Systems All Other Systems at this time: Reviewed and Negative Physical Exam Vital Signs: Temperature: 98.3, Source: Oral, Heart Rate: 60, Respiratory Rate: 16, BP: 172/83, Pulse Oximetry: 96, Weight: 95.800 Oxygen Flow Rate: 0 Physical Exam General Appearance: Alert, WD/WN. NAD. HEENT: NCAT, PERRL, EOMI. Neck: Supple, trachea midline. Cardiovascular: RRR. No m/r/g. Lungs: CTAB. Breathing unlabored Extremities: Normal inspection. No edema. Skin: Warm/dry, normal color Neurological: Alert and oriented x4, normal gait. Psychiatric: Affect congruent with mood. Progress Results/Orders Results/Orders Vital Signs 07/21/24 07/21/24 15:48 17:05 Temp 98.3 98.3 Pulse 60 Resp 16 B/P (MAP) 172/83 Pulse Ox 96 O2 Flow Rate 0 Medical Decision Making Differential Dx:Considerations: Include CHF, Include HTN, essential, Include HTN, accelerated, Include HTN, malignant, Include HTN, encephalopathy, Include medical noncompliance, Include medication withdrawal, Include pulmonary edema, Include renal failure, Include -induced Departure Time of Disposition: 16:56 Disposition: 01 HOME / SELF CARE / HOMELESS Impression: Primary Impression: Benign hypertension Condition: Stable Discharge Instructions: Hypertension, Adult Additional Instructions: F/U WITH PCP AND QUANTITATIVE RESEARCH ANALYST BRING YOUR HOME BP MACHINE WITH YOU WHEN YOU SEE YOUR PCP OR QUANTITATIVE RESEARCH ANALYST TO HAVE IT CHECKED AGAINST THE IN OFFICE READING FOR ACCURACY Referrals: NO PRIMARY CARE PROVIDER (PCP) Education Educated: Patient Educated regarding: diagnosis, treatment, need for follow up Signature Scribe Signature: X Attestation: TERESA SCHUSTER Jul 21, 2024 16:56
[2024-07-21 17:05] VITALS: TEMP 98.3
== END 2024-07-21 17:10 | disposition home or self-care (01) ==
LOC: ER 15:47
DX: I10 Essential (primary) hypertension (principal); E78.00 Pure hypercholesterolemia, unspecified; Z88.5 Allergy status to narcotic agent; Z88.8 Allergy status to other drugs, medicaments and biological substances; Z95.0 Presence of cardiac pacemaker; Z96.653 Presence of artificial knee joint, bilateral
CPT/HCPCS: 99281

== ENCOUNTER 2024-12-13 10:05 | Emergency (ER) | payer BC ==
[~2024-12-13] VITALS: Ht 152.4 cm; Wt 97.7 kg
[2024-12-13 10:07] VITALS: TEMP 97.8
--- NOTE | 2024-12-13 11:09 | RADIOLOGY REPORT ---
CLINICAL INDICATION: KNEE PAIN TECHNIQUE: Left DI KNEE, COMP 4 VW MIN Comparison: DI KNEE LIMITED (AP/LAT) on DOS: 12/18/22, DI KNEE, COMP 4 VW MIN on DOS: 11/14/22 FINDINGS/IMPRESSION: : There is no evidence of acute fracture or dislocation. Moderate joint effusion. Left knee arthroplasty.
--- NOTE | 2024-12-13 12:24 | Physician Documentation ---
History of Present Illness ~ Chief Complaint: Knee Pain Stated Complaint: KNEE PAIN Time Seen by MD: 11:50 Primary Medical Doctor: Residency Service HPI 84-year-old female presents to the ED with increased swelling in her left knee. She states this happens when she does not elevate her leg. Reports that her has been in the hospital in she has been sitting with him which he believes is what led to her symptoms today. Today while on the toilet because of the knee pain she was unable to get up and required a since its. Because of this her son center to the ER for evaluation. Denies any head strikes loss of consciousness or vasovagal symptom Tetanus witin 5 years: Yes Medication Reconciliation Allergies: Coded Allergies: shellfish derived (Verified Allergy, Unknown, 12/13/24) acetaminophen (Unverified Adverse Reaction, Intermediate, Nausea/vomiting, 12/13/24) hydrocodone (Unverified Adverse Reaction, Intermediate, Nausea/vomiting, 12/13/24) diazepam (Verified Adverse Reaction, Unknown, 12/13/24) vomiting , scares her, "feels like dying" Scheduled Benazepril Hcl* (Lotensin*), 1 TAB PO DAILY, (Reported) Cyanocobalamin (Vitamin B-12) (Vitamin B12), 1,000 MCG PO DAILY, (Reported) Furosemide (Lasix), 40 MG PO BID Glucosamine Sulfate 2Kcl (Glucosamine), 1 TAB PO DAILY, (Reported) Metoprolol Succinate* (Toprol Xl*), 1 TAB PO DAILY, (Reported) Warfarin Sodium (Warfarin Sodium), 1 TAB PO , , (Reported) Warfarin Sodium* (Coumadin*), 10 MG PO , , , Wed, Wed, (Reported) Miscellaneous Medications Calcium Carbonate (Calcium), 1,000 MG PO, (Reported) Past Medical History Past Medical History: *CARDIOVASCULAR*, High Cholesterol, Hypertension, Deep Vein Thrombosis Past Surgical History: pacemaker Other Past Surgical History: Bilateral knee replacement Drug Use: none Lives In: Home Occupation: retired Review of Systems All Other Systems at this time: Reviewed and Negative ROS As stated above in the HPI, otherwise all systems are reviewed and negative. Physical Exam Vital Signs: Temperature: 97.8, Heart Rate: 62, Respiratory Rate: 18, BP: 145/53, Pulse Oximetry: 95, Weight: 97.730 Physical Exam General: Alert, no apparent distress. Extremities No swelling left knee. Erythema no point tenderness. No deformity. Neurologic: Oriented x4. Psychiatric: Normal mood and affect. Skin: Normal color, warm and dry. No edema, no ecchymosis. Progress Results/Orders Results/Orders Orders - GUTIERREZ DREW INVESTOR Ortho Orders (12/13/24 ) Vital Signs 12/13/24 12/13/24 10:07 13:02 Temp 97.8 Pulse 62 63 Resp 18 15 B/P (MAP) 145/53 149/99 Pulse Ox 95 96 Medical Decision Making Additional information obtaine: N/A Findings After evaluating the patient who has decided through shared decision-making that she is likely having knee pain and swelling secondary to not elevating her legs appropriately. I advised her to return to her normal habit of elevating her legs and I will provide her with a an Osmani wrap to help with the swelling My interpretation of her knee x-ray I made note of moderate effusion in her knee General Diff Dx:Considerations: Unlikely: Abrasion, Contusion, Fracture, H ematoma, Laceration, Malunion, Neurovascular injury, Open fracture, Sprain, Ulcer, Other Knee Diff Dx:Considerations: Include: Abrasion, Arthritis, Contusion, DJD, Fracture-femur, Fracture-fibula, Fracture-patella, Fracture-tibia, Gout, Hematoma, Laceration, Meniscus injury, Neurovascular injury, Open fracture, Rheumatoid arthritis, Septic, Sprain, Sprain-MCL, Sprain-LCL, Sprain-ACL, Sprain-PCL, Other Ankle Diff Dx:Considerations: Unlikely: Abrasion, Arthritis, Contusion, DJD, Fracture-metatarsal, Fracture-fibula, Fracture-tarsal, Fracture-tibia, Gout, Hematoma, Laceration, Malunion, Neurovascular injury, Nonunion, Open fracture, Osteomyelitis, Rheumatoid arthritis, Sprain, Septic, Ulcer, Other Foot Diff Dx:Considerations: Unlikely: Abrasion, Arthritis, Cellulitis, Contusion, Dislocation, DJD, Fracture-metatarsal, Fracture-phalynx, Fracture- tarsal, Gout, Hematoma, Ingrown toenail, Laceration, Malunion, Neurovascular injury, Open fracture, Paronychia, Puncture, Rheumatoid, Sprain, Septic, Subungual hematoma, Ulcer, Other Toe Diff Dx:Considerations: Unlikely: Abrasion, Cellulitis, Contusion, Dislocation, Felon, Fracture, Hematoma, Laceration, Neurovascular injury, Open fracture, Paronychia, Subungual hematoma, Other Departure Disposition: 01 HOME / SELF CARE / HOMELESS Impression: Primary Impression: Effusion of knee Additional Impression: Knee pain Condition: Improved Discharge Instructions: Knee Effusion Additional Instructions: Please return to your normal practice of elevating your legs to reduce leg swelling. You may use the Osmani wrap as needed to help with reduction of your knee effusion Referrals: NO PRIMARY CARE PROVIDER (PCP) Education Educated: Patient Educated regarding: diagnosis Signature Scribe Signature: r Attestation: Scribed for Gutierrez Drew Fraud Analyst by Gutierrez Sharma NP . 12/13/24 12:23 GUTIERREZ DREW NP Dec 13, 2024 12:24
[2024-12-13 13:02] VITALS: BP 149/99; PULSE 63; RESP 15; O2SAT 96
== END 2024-12-13 13:04 | disposition home or self-care (01) ==
LOC: ER 10:05
DX: M25.462 Effusion, left knee (principal); M25.562 Pain in left knee; I10 Essential (primary) hypertension; E78.00 Pure hypercholesterolemia, unspecified; Z91.013 Allergy to seafood; Z88.5 Allergy status to narcotic agent; Z88.8 Allergy status to other drugs, medicaments and biological substances; Z86.718 Personal history of other venous thrombosis and embolism; Z95.0 Presence of cardiac pacemaker; Z79.899 Other long term (current) drug therapy; Z79.01 Long term (current) use of anticoagulants
CPT/HCPCS: 73564; 99283; A6449